=== PATIENT | female | born 2000 | race Caucasian/White ===

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

== ENCOUNTER 2019-06-06 11:51 | Emergency (ER) | payer OTHER ==
[2019-06-06 12:20] VITALS: BP 115/68
[2019-06-06] MEDS ORDERED: Ibuprofen TAB* 600 MG PO ONE (12:32)
--- NOTE | 2019-06-06 12:36 | UC ---
Throat Pain/Nasal Rogers HPI - HPI Summary HPI Summary: 18-year-old female comes in with a chief complaint of sore throat and chills with ear pain for 2 days. Patient reports that she has recurrent tonsillitis and strep pharyngitis. That's what it feels like right now. It hurts to swallow. She has taken some icbb-wol-ggoxhen medications was helped some of the symptoms. No difficulty breathing. - History of Current Complaint Chief Complaint: UCGeneralIllness Stated Complaint: ST,BILATERAL EAR,ACHY,CHILLS Time Seen by Provider: 06/06/19 12:23 Hx Last Menstrual Period: 07/23/18 Pain Intensity: 8 - Allergies/Home Medications Allergies/Adverse Reactions: Allergies Allergy/AdvReac Type Severity Reaction Status Date / Time No Known Allergies Allergy Verified 06/06/19 12:20 Home Medications: Home Medications Multivitamin [One-Daily Multi-Vitamin] 1 each PO DAILY 06/06/19 [History Confirmed 06/06/19] PMH/Surg Hx/FS Hx/Imm Hx Previously Healthy: Yes - recurrent tonsillitis - Surgical History Surgical History: None - Family History Known Family History: Positive: Cardiac Disease - Social History Alcohol Use: Weekly Substance Use Type: None Smoking Status (MU): Current Some Day Smoker Type: eCigarettes Have You Smoked in the Last Year: No - Immunization History Vaccination Up to Date: Yes Review of Systems All Other Systems Reviewed And Are Negative: Yes Constitutional: Positive: Chills, Other - see hpi Skin: Positive: Negative Eyes: Positive: Negative ENT: Positive: Sore Throat, Ear Ache, Nasal Discharge Respiratory: Positive: Negative Cardiovascular: Positive: Negative Gastrointestinal: Positive: Negative Motor: Positive: Negative Neurovascular: Positive: Negative Musculoskeletal: Positive: Negative Neurological: Positive: Negative Psychological: Positive: Negative Is Patient Immunocompromised?: No Physical Exam Triage Information Reviewed: Yes Appearance: No Pain Distress, Well-Nourished, Ill-Appearing - mild Vital Signs: Initial Vital Signs Temp 101.5 F 06/06/19 12:15 Pulse 98 06/06/19 12:15 Resp 18 06/06/19 12:15 BP 115/68 06/06/19 12:15 Pulse Ox 100 06/06/19 12:15 Vital Signs Reviewed: Yes Eye Exam: Normal Eyes: Positive: Conjunctiva Clear ENT: Positive: Pharyngeal erythema, Nasal congestion, Nasal drainage, TMs normal , Tonsillar swelling - 3+ bilaterally. Uvula midline. Positive erythema.. Negative: Muffled voice, Hoarse voice Neck: Positive: Supple Respiratory: Positive: Lungs clear, Normal breath sounds, No respiratory distress Cardiovascular: Positive: RRR Musculoskeletal: Positive: Strength Intact, ROM Intact Neurological: Positive: Alert, Muscle Tone Normal Psychological: Positive: Age Appropriate Behavior Skin Exam: Normal Throat Pain/Nasal Course/Dx - Course Course Of Treatment: I discussed viral verses bacterial infection and the role of antibiotics. At this time the patient prefers to be on antibiotics. We'll also continue symptomatic treatment. - Differential Dx/Diagnosis Provider Diagnosis: Tonsillitis Discharge ED - Sign-Out/Discharge Documenting (check all that apply): Patient Departure All imaging exams completed and their final reports reviewed: No Studies - Discharge Plan Condition: Stable Disposition: HOME Prescriptions: Amoxicillin PO (*) [Amoxicillin 875 MG (*)] 875 mg PO BID #20 tab Patient Education Materials: Tonsillitis (ED) Forms: *School Release, *Work Release Referrals: [facility] [Outside] [facility] [Outside] Additional Instructions: FOLLOW UP WITH YOUR DOCTOR IF NOT COMPLETELY IMPROVED. GET REEVALUATED SOONER IF NOT IMPROVING OR WORSE OR ANY QUESTIONS OR CONCERNS. - Billing Disposition and Condition Condition: STABLE Disposition: Home
== END 2019-06-06 12:44 | disposition home or self-care (01) ==
LOC: UCCORT 11:51
DX: J03.90 Acute tonsillitis, unspecified (principal); H92.09 Otalgia, unspecified ear; J34.89 Other specified disorders of nose and nasal sinuses; F17.290 Nicotine dependence, other tobacco product, uncomplicated
CPT/HCPCS: 87651; 99212; A9270-GY; G0463

== ENCOUNTER 2019-08-30 11:28 | Emergency (ER) | payer OTHER ==
--- OUTSIDE RECORDS SUMMARY | 2019-08-30 11:37 | XMS REPORT ---
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 669718693 asthma Problem Acne vulgaris L70.0 Active 24408469 ALLERGIES No Known Allergies ENCOUNTERS Encounter Location Date Diagnosis [address] Jul, Encounter for general adult [place], [place] [id number] medical examination without abnormal findings Z00.00 ; Body mass index (BMI) pediatric, 5th percentile to less than 85th percentile for age Z68.52 ; Dietary counseling and surveillance Z71.3 ; Dermatitis, unspecified L30.9 and Cough variant asthma J45.[address] Dec, Local infection of the skin and [place], [place] [id number] subcutaneous tissue, unspecified L08.9 ; Superficial foreign body of left ear, initial encounter S00.452A and Encounter for ear piercing Z41.[address] Jul, Encounter for general adult [place], [place] [id number] medical examination without abnormal findings Z00.00 ; Body mass index (BMI) pediatric, 5th percentile to less than 85th percentile for age Z68.52 ; Dietary counseling and surveillance Z71.3 ; Hyperlipidemia, unspecified E78.5 and Cough variant asthma J45.[address] Jun, Acute pharyngitis, unspecified [place], [place] [id number] J02.9 [facility] [address] [place] [address] Dec, Allergic contact dermatitis due RON Welsh [id number] to plants, except food L23.7 [facility] [address] [place] [address] Dec, [place] [id number] [address] Dec, Contusion of scalp, initial [place], [place] [id number] encounter S00.03XA and Dizziness and giddiness R42 [facility] [address] [place] [address] November, [place], RON [id number] [address] Jul, Cough variant asthma J45.991 [place] [id number] and Encounter for immunization Z23 [address] Jul, Encounter for general adult RON Welsh [id number] medical examination without abnormal findings Z00.00 ; Cough variant asthma J45.991 ; Body mass index (BMI) pediatric, 5th percentile to less than 85th percentile for age Z68.52 ; Dietary counseling and surveillance Z71.3 and Contact with and (suspected) exposure to unspecified communicable disease Z20.9 [facility] [address] [place] [address] Jul, [place] [id number] [address] Jul, Acute upper respiratory [place], [place] [id number] infection, unspecified J06.9 and Cough variant asthma J45.[address] Apr, Acute tonsillitis, unspecified [place], [place] [id number] J03.90 [facility] [address] [place] [address] Mar, Cough variant asthma J45.991 [place] [id number] [facility] [address] [place] [address] Feb, Cough variant asthma J45.991 [place] [id number] [address] Jul, Encounter for routine child [place], [place] [id number] health examination without abnormal findings Z00.129 ; Dietary counseling and surveillance Z71.3 ; Other specified counseling Z71.89 and Acne vulgaris L70.[address] [facility] [address] [facility] Jul, Encounter for immunization Z23 [address] [place] [id number] [facility] [address] [place] [address] Feb, Allergic contact dermatitis due [place] [id number] to plants, except food L23.7 [facility] [address] [place] [address] Sep, Cough variant asthma J45.991 [place], [place] [id number] and Allergic rhinitis, unspecified J30.[address] Sep, Cough variant asthma J45.991 [place] [id number] [address] Aug, Encounter for routine child [address] [place], health examination without [place] [id number] abnormal findings Z00.129 ; Dietary counseling and surveillance Z71.3 and Other specified counseling Z71.[address] May, Cough variant asthma J45.[address] [place], [place] [id number] [facility] [address] [place] [address] May, Cough variant asthma J45.991 [place] [id number] [address] May, Encounter for immunization Z23 [address] [place] [id number] [facility] [address] [place] [address] Jul, Well /child exam V20.2 ; [place], [place] [id number] BMI PED 5TH-85TH PERCENT V85.52 ; DIETARY SURVEIL/AUTOMOTIVE DESIGN LAYOUT DRAFTER V65.3 ; EXERCISE COUNSELING V65.41 and Hyperlipidemia 272.[address] May, VACCIN FOR INFLUENZA V04.[address] [place] [id number] Apr, VACCIN FOR DISEASE NEC V05.[address] [place] [id number] [facility] [address] [place] [address] Sep, VACCIN FOR DISEASE NEC V05.8 [place] [id number] [facility] [address] [place] [address] Jul, Well infant/child exam V20.2 ; [place], [place] [id number] BMI PED 5TH-85TH PERCENT V85.52 ; DIETARY SURVEIL/AUTOMOTIVE DESIGN LAYOUT DRAFTER V65.3 ; EXERCISE COUNSELING V65.41 and Hypercholesterolemia 272.0 [facility] [address] [place] [address] Jun, VACCIN FOR INFLUENZA V04.81 [place] [id number] [address] 16 Mar, [address] [place] [id number] [facility] 14 Mar, 2013 Viral infection 079.99 [place] [id number] [address] Dec, Cyst (solitary) of breast 610.0 [facility] [address] [place] [id number] Aug, Otitis externa, swimmers [address] [place] [id number] Jul, Well infant/child exam V20.2 ; [facility] [address] [place] [address] BMI PED 5TH-85TH PERCENT V85.52 [place], [place] [id number] ; DIETARY SURVEIL/AUTOMOTIVE DESIGN LAYOUT DRAFTER V65.3 and EXERCISE COUNSELING V65.[address] Jun, Pharyngitis [address] [place] [id number] Apr, Otitis externa, swimmers [address] [place] [address] and VACCIN FOR INFLUENZA V04.81 [place] [id number] [address] Dec, Hematuria, unspecified [address] [place] [id number] Dec, Hematuria, unspecified 599.70 [facility] [address] [place] [id number] Oct, Pharyngitis [address] throat 034.0 [place] [id number] [facility] [address] [facility] Sep, [place] [id number] [address] Sep, Conjunctivitis, acute [address] [place] [id number] Jul, Well /child exam V20.2 [facility] [address] [place] [id number] Apr, Wart, plantar 078.19 and VACCIN [facility] [address] [place] [address] FOR INFLUENZA V04.81 [place], [place] [id number] [facility] [address] [facility] Dec, INSECT BITE NEC 919.4 [place] [id number] [facility] [address] [facility] Aug, Pharyngitis, acute 462 [place] [id number] [address] Jul, Well infant/child exam V20.[address] [place] [id number] Jun, VACCIN FOR INFLUENZA V04.[address] [place] [id number] [facility] [address] [facility] May, Viral pharyngitis 462 [place] [id number] [facility] [address] [facility] May, Allergic Rhinitis 477.0 [place] [id number] [address] Apr, Upper respiratory infection [address] [place] [id number] Sep, [address]aryngitis [address] [place] [id number] Jul, Well infant/child exam V20.[address] [place] [id number] Jun, VACCIN FOR INFLUENZA V04.[address] [place] [id number] Jun, Viral infection [address] [place] [id number] Mar, CONTUSION NOS [address] [place] [id number] Aug, Upper respiratory infection Road [address] [place] [id number] Jul, HEMATURIA [address] [place] [id number] Jul, Well infant/child exam V20.[address] [place] [address] [id number] [facility] [address] [facility] May, VACCIN FOR INFLUENZA V04.81 [place] [id number] [address] [facility] May, Allergic Rhinitis [address] [place] [id number] [address] [facility] Apr, [address]aryngitis [address] New respiratory infection 465.9 [place] [id number] [address] [facility] [address] Sep, [address]aryngitis [address] [place] [id number] [address] 200 [facility] Aug, Pharyngitis [address] [place] [id number] [address] 200 [facility] Jul, Well infant/child exam V20.[address] [id number] [facility] [address] [place] [address] Jun, VACCIN FOR INFLUENZA V04.81 [place] [id number] [facility] [address] [place] [address] Apr, Poison Aye 692.6 [place] [id number] [facility] [address] [place] [address] Mar, Abdominal Pain 789.00 [place] [id number] [address] November, Contusion, finger [address] [place], [place] [id number] [facility] [address] [place] [address] Aug, Conjunctivitis, acute 372.00 RON Welsh [id number] [facility] [address] [place] [address] Jun, EAR PIERCING V50.3 [place] [id number] [facility] [address] [place] [address] Jun, Well infant/child exam V20.2 [place] [id number] [facility] [address] [place] [address] May, ASTHMA NOS 493.90 [place] [id number] [facility] [address] [place] [address] May, ASTHMA NOS 493.90 and Otitis [place] [id number] media, acute supporative, w/o rupture of TM 382.00 [facility] [address] [place] [address] November, Pharyngitis (acute) 462 RON Welsh [id number] [facility] [address] [place] [address] Aug, [place] [id number] [facility] [address] [place] [address] Jun, [place] [id number] [facility] Jun, RON Welsh [id number] [facility] [address] [place] [address] Jun, [place] [id number] [facility] [address] [place] [address] Dec, [place] [id number] [facility] [address] [place] [address] November, [place] [id number] [facility] [address] [place] [address] Sep, [place] [id number] [facility] [address] [place] [address] Sep, [place] [id number] [facility] [address] [place] [address] Jun, [place] [id number] [facility] [address] [place] [address] Jun, RON Welsh [id number] [facility] [address] [place] [address] May, RON Welsh [id number] [facility] [address] [place] [address] Dec, RON Welsh [id number] [facility] [address] [place] [address] Dec, RON Welsh [id number] IMMUNIZATIONS Vaccine Route Administration Date Status Meningitis B (Trumenba) IM Intramuscular Aug 04, 2019 Administered SOCIAL HISTORY Never Assessed REASON FOR REFERRAL FUNCTIONAL STATUS PLAN OF CARE Activity Details Follow Up 1 Year for routine annual physical, prn Reason: VITAL SIGNS Height 67 in 2019-08-04 Weight 141 lbs 2019-08-04 BMI 22.08 2019-08-04 Temperature 97.3 ts degrees Fahrenheit 2019-08-04 Heart Rate 58 /min 2019-08-04 Oximetry 100 2019-08-04 Blood pressure systolic 100 mm Hg 2019-08-04 Blood pressure diastolic 60 mm Hg 2019-08-04 MEDICATIONS Medication Instructions Dosage Frequency Start End Date Duration Status Date ProAir inhaler inhaled q 4-6 2 puffs Not-Takin hrs prn g Dulera 5 inhaled bid 2 puffs 12h Active mcg-200 mcg/inh fluticasone applied 1 shalini 12h Jul, 3 Mar, 14 day(s) Active topical 0.005% topically bid 2019 Active PROCEDURES Procedure Date Ordered Result Body Site [facility] Medicaid Aug 04, 2019 Immun Admin Fee 1st - OVER 19 yrs old Aug 04, 2019 Meningitis B (Trumenba) Aug 04, 2019 BRIEF EMOTIONAL/BEHAV ASSMT Aug 04, 2019 URINALYSIS NONAUTO use Aug 04, 2019 AUDIOMETRY-HEARING Aug 04, 2019 Vision Screen Aug 04, 2019 RESULTS Name Result Date Reference Range Urinalysis 2019-08-04 Leuk 70 neg - Yamileth/mcL Nitrite neg neg - nitrites Urobili 0.2 neg - mg/dL Protein neg neg (0) - 15 mg/dL pH 6.0 5 - 9 pH Blood 200 neg - Jonnathan/mcL Sp. Gr. 1.030 1.000 - 1.025 SG Ketone neg neg - ketones Bili neg neg - Glucose neg neg (0) - mg/dL initials pm Color/Clarity yellow/clear clear - yellow HEARING/AUDIOMETRY 2019-08-04 R 500 25 R 1000 25 R 2000 25 R 4000 25 L 500 25 L 1000 25 L 2000 25 L 4000 25 initials pm REASON FOR VISIT Brought in by Self, 19 yr well, diarrhea- 1x weekly Insurance Providers [facility] Health Member Patient Patient Patient Patient Patient Subscriber Subscriber Subscriber Group Insurance Plan Plan Plan Plan ID Relationship Address Phone Name Date of ID Name Date of No Type Insurance Insurance Insurance Coverage to Subscriber Address Phone Name Dates DARION [phone] DARION self ISACC [id number] MEDICAID ATT SAMANTHA 47 MEDICAID [facility] [id number] DARION [phone] DARION self ISACC [id number] CHILD ATT SAMANTHA 47 CHILD [facility] [id number] MEDICAL (GENERAL) HISTORY Type Description Date Medical History asthma Medical History otitis media Surgical History No Surgical history information Hospitalization History No Hospitalization history information
[2019-08-30 11:46] VITALS: BP 125/67
[2019-08-30 12:20] LABS: Influenza A Molecular Negative (Negative); Influenza B Molecular Negative (Negative)
--- NOTE | 2019-08-30 13:17 | UC ---
FLU HPI - HPI Summary HPI Summary: 19-year-old female presenting with nasal congestion, dry cough, and sore throat from coughing 4 days. She notes shortness of breath on exertion for which she is using her inhaler. Notes seasonal asthma. Denies wheezing. Denies shortness of breath at rest. Denies nausea and vomiting. Denies fever and chills. Denies body aches. States she is taking DayQuil and NyQuil without relief of cough. - History of Current Complaint Chief Complaint: UCRespiratory Stated Complaint: COUGH CONGESTION EARS Hx Obtained From: Patient Hx Last Menstrual Period: 08/03/19 Pain Intensity: 3 Pain Scale Used: 0-10 Numeric - Allergy/Home Medications Allergies/Adverse Reactions: Allergies Allergy/AdvReac Type Severity Reaction Status Date / Time No Known Allergies Allergy Verified 08/30/19 11:46 Home Medications: Home Medications Albuterol HFA INHALER* [Ventolin HFA Inhaler*] 1 puff INH Q4H PRN 08/30/19 [ History Confirmed 08/30/19] Chlorpheniramine/Dextromethorp [[facility]] 1 liq PO BEDTIME [History Confirmed 08/30/19] PMH/Surg Hx/FS Hx/Imm Hx Respiratory History: Asthma - Surgical History Surgical History: None - Family History Known Family History: Positive: Cardiac Disease - Social History Alcohol Use: Weekly Substance Use Type: None Smoking Status (MU): Current Some Day Smoker Type: eCigarettes Have You Smoked in the Last Year: No - Immunization History Vaccination Up to Date: Yes Review of Systems All Other Systems Reviewed And Are Negative: Yes Constitutional: Positive: Negative ENT: Positive: Sore Throat - "from coughing", Sinus Congestion Respiratory: Positive: Shortness Of Breath - on exertion, Cough - nonproductive Cardiovascular: Positive: Negative Gastrointestinal: Positive: Negative Musculoskeletal: Positive: Negative Neurological/Mental Status: Positive: Negative Physical Exam - Summary Physical Exam Summary: Vital Signs Reviewed: Yes A+Ox3, no distress, well-appearing Eyes: Conjunctiva Clear ENT: Hearing grossly normal, TM x 2 clear, moist, uvula midline, no exudate, + pharyngeal erythema Neck: Positive: Supple Respiratory: Positive: No respiratory distress, No accessory muscle use + CTA throughout no w/r Cardiovascular: RRR nl s1, s2 no m/r Musculoskeletal Exam: ELIZONDO x 4 without difficulty Neurological: Positive: Alert Psychological: Positive: age appropriate behavior Skin: Positive: no rash, no ecchymosis Vital Signs: Initial Vital Signs Temp 97.5 F 08/30/19 11:40 Pulse 88 08/30/19 11:40 Resp 18 08/30/19 11:40 BP 125/67 08/30/19 11:40 Pulse Ox 100 08/30/19 11:40 Lab Results 08/30/19 Range/Units 12:08 Influenza A (Rapid) Negative (Negative) Influenza B (Rapid) Negative (Negative) Flu Course/Dx - Course Course Of Treatment: Negative rapid flu. Discussed viral illness and acute bronchitis with patient. Educated on symptomatic treatment and provided patient with Tessalon Perles for cough relief. Instructed to continue with inhaler and increase fluids. Instructed to follow-up with [facility] if symptoms do not improve within 2 weeks. Patient voiced understanding and agreed with the treatment plan. - Differential Dx/Diagnosis Differential Diagnosis/HQI/PQRI: Bronchitis, Upper Respiratory Infection Provider Diagnosis: Acute bronchitis with bronchospasm Discharge ED - Sign-Out/Discharge Documenting (check all that apply): Patient Departure All imaging exams completed and their final reports reviewed: No Studies - Discharge Plan Condition: Stable Disposition: HOME Prescriptions: Benzonatate CAP* [Tessalon 100 MG CAP*] 100 mg PO TID PRN #21 cap PRN Reason: Cough Patient Education Materials: Acute Bronchitis (ED), Bronchospasm (ED) Referrals: [facility] [Outside] - If Needed Additional Instructions: Yout flu test was negative. Your symptoms are likely caused by a different virus and should resolve without treatment. Use the tesslon perles as prescribed for cough relief. You may continue with over the counter cough medications as directed. You may add a decongestant as well. Use your inhaler as needed for shortness of breath. A humidifier at night or hot stream from the shower will help alleviate symptoms. Increase your fluid intake. Follow up with the [facility] clinic listed below if symptoms do not improve within 2 weeks. - Billing Disposition and Condition Condition: STABLE Disposition: Home
== END 2019-08-30 13:32 | disposition home or self-care (01) ==
LOC: UCCORT 11:28
DX: J20.9 Acute bronchitis, unspecified (principal); J45.909 Unspecified asthma, uncomplicated; F17.290 Nicotine dependence, other tobacco product, uncomplicated
CPT/HCPCS: 99212; G0463